=== PATIENT | female | born 1985 | race Caucasian/White ===

== ENCOUNTER 2016-10-02 22:21 | Emergency (ER) | payer MEDICAID ==
[2016-10-02 22:41] VITALS: BP 131/87
--- NOTE | 2016-10-03 00:25 | ER Document Report ---
ED ENT - General Chief Complaint: Sore Throat Stated Complaint: SORE THROAT Time Seen by Provider: 10/03/16 00:18 Notes: Patient is a 31-year-old female presents with 2 days of worsening sore throat and swollen lymph nodes on the left side of her neck. She is able to swallow food and liquids, but it is painful. Denies trismus, fevers, neck stiffness, cough or tongue elevation TRAVEL OUTSIDE OF THE [place] IN LAST 30 DAYS: No - Related Data Allergies/Adverse Reactions: No Known Allergies Allergy (Unverified 11/11/15 19:28) Past Medical History - General Information source: Patient - Social History Smoking Status: Current Every Day Smoker Family History: Reviewed & Not Pertinent Patient has suicidal ideation: No Patient has homicidal ideation: No Renal/ Medical History: Denies: Hx Peritoneal Dialysis Past Surgical History: Reports: Hx Gynecologic Surgery, Hx Tubal Ligation Review of Systems - Review of Systems Notes: REVIEW OF SYSTEMS: CONSTITUTIONAL: -fevers, -chills EENT: -eye pain, -difficulty swallowing, -nasal congestion, +sore throat CARDIOVASCULAR:-chest pain, -syncope. RESPIRATORY: -cough, -SOB GASTROINTESTINAL: -abdominal pain, - nausea, -vomiting, -diarrhea GENITOURINARY: -dysuria, -hematuria MUSCULOSKELETAL: -back pain, -neck pain SKIN: -rash or skin lesions. HEMATOLOGIC: -easy bruising or bleeding. LYMPHATIC: -swollen, enlarged glands. NEUROLOGICAL: -altered mental status or loss of consciousness, -headache, - neurologic symptoms PSYCHIATRIC: -anxiety, -depression. ALL OTHER SYSTEMS REVIEWED AND NEGATIVE. Physical Exam - Vital signs Vitals: Temp Pulse Resp BP Pulse Ox 99.1 F 102 H 16 131/87 H 99 10/02/16 22:39 10/02/16 22:39 10/02/16 22:39 10/02/16 22:39 10/02/16 22:39 - Notes Notes: PHYSICAL EXAMINATION: GENERAL: Well-appearing, well-nourished and in no acute distress. HEAD: Atraumatic, normocephalic. EYES: Pupils equal round and reactive to light, extraocular movements intact, sclera anicteric, conjunctiva are normal. ENT: nares patent, left METAL WEIGHER with exudates, oropharynx patent, no trismus. Moist mucous membranes. NECK: Normal range of motion, supple with left anterior lymphadenopathy LUNGS: Breath sounds clear to auscultation bilaterally and equal. No wheezes rales or rhonchi. HEART: Regular rate and rhythm without murmurs ABDOMEN: Soft, nontender, normoactive bowel sounds. No guarding, no rebound. No masses appreciated. EXTREMITIES: Normal range of motion, no pitting or edema. No cyanosis. NEUROLOGICAL: Cranial nerves grossly intact. Normal speech, normal gait. Normal sensory and motor exams. PSYCH: Normal mood, normal affect. SKIN: Warm, Dry, normal turgor, no rashes or lesions noted. Course - Re-evaluation Re-evalutation: Patient with small left-sided METAL WEIGHER. Airway is open and patent. Attempted to drain METAL WEIGHER, but unsuccessful at this time. Steroids, clindamycin and anti- inflammatories started with follow-up at ENT. Patient given strict return precautions and she understands. - Vital Signs Vital signs: Temp Pulse Resp BP Pulse Ox 99.1 F 102 H 16 131/87 H 99 10/02/16 22:39 10/02/16 22:39 10/02/16 22:39 10/02/16 22:39 10/02/16 22:39 Procedures - Incision and Drainage Left Face Type: Simple - Left METAL WEIGHER Anesthetic type: 1% Lidocaine mL's of anesthetic: 2 Blade size: Other - 18 guage needle Incision Method: Incision made with needle Amount/type of drainage: None Discharge - Discharge Clinical Impression: Peritonsillar abscess Condition: Stable Disposition: HOME, SELF-CARE Additional Instructions: Lyle-Tonsillar Abscess You have a lyle-tonsillar abscess, a pus-filled swelling adjacent to the tonsil. Some abscesses may be left to drain on their own, but most require opening or lancing. It may be a couple of days before the abscess is ready to harshal or to differentiate an abscess from just local tissue infection called cellulitis. An antibiotic may prevent spread of the infection and a steroid medication may reduce the swelling. Once the abscess is opened, either on its own or by lancing it, the wound will heal with surprisingly little scar. Depending on the size of an abscess, healing can take one to four weeks. If you develop fever, chills, worsening pain, or increasing swelling in the area, call the doctor or return immediately. The major risk of a lyle- tonsillar abscess is that it may swell so much that it impinges on your airway and can lead to dangerous obstruction of your breathing. If that seems to be developing, you should seek immediate emergency re-evaluation and care. Prescriptions: Acetaminophen with Codeine [Tylenol #3 Tablet] 1 each PO Q4HP PRN #10 tablet PRN Reason: Clindamycin HCl 300 mg PO Q8H #21 capsule Naproxen [Naprosyn 250 mg Tablet] 500 mg PO Q12H #20 tablet Prednisone [Deltasone 20 mg Tablet] 3 tab PO DAILY 5 Days Referrals: ROSENDO STACY MD [ACTIVE STAFF] - Follow up as needed
[2016-10-03] MEDS ORDERED: NAPROXEN 250 MG TABLET PO ONE (00:46)
[2016-10-03] MEDS ORDERED: LIDOCAINE 2% INJ-PF (20 MG/ML) 10 ML AMPUL NEB ONE (00:46)
[2016-10-03] MEDS ORDERED: DEXAMETHASONE 4 MG TABLET PO ONE (00:46)
[2016-10-03] MEDS ORDERED: CLINDAMYCIN HCL 150 MG CAPSULE PO ONE (00:47)
[2016-10-03] MEDS ORDERED: LIDOCAINE 2% INJ (20 MG/ML) 20 ML MDV INJ ONE (00:47)
== END 2016-10-03 01:50 | disposition home or self-care (01) ==
LOC: ER 22:21
PROC: 0C9PXZZ Drainage of Tonsils, External Approach (ICD-10-PCS; principal; 2016-10-02)
DX: J36 Peritonsillar abscess (principal); F17.200 Nicotine dependence, unspecified, uncomplicated
CPT/HCPCS: 42700; 99283; 87070; 87880; 87077; J3490 ×5

== ENCOUNTER 2016-11-06 18:30 | Emergency (ER) | payer MEDICAID ==
[2016-11-06] MEDS ORDERED: CLINDAMYCIN HCL 150 MG CAPSULE PO ONE (19:05)
[2016-11-06] MEDS ORDERED: LIDOCAINE 2% VISCOUS SOLN 20 ML UDCUP PO ONE (19:05)
[2016-11-06] MEDS ORDERED: DEXAMETHASONE SOD PHOS INJ 10 MG/1 ML VIAL IM ONE (19:06)
[2016-11-06] MEDS ORDERED: IBUPROFEN 800 MG TABLET PO ONE (19:11)
[2016-11-06] MEDS ORDERED: PREDNISONE 20 MG TABLET PO ONE (19:11)
[2016-11-06] MEDS ORDERED: ONDANSETRON HCL 8 MG TABLET PO ONE (19:12)
--- NOTE | 2016-11-06 19:13 | ER Document Report ---
ED Oral Problem - General Mode of Arrival: Ambulatory Information source: Patient TRAVEL OUTSIDE OF THE [place] IN LAST 30 DAYS: No - HPI Patient complains to provider of: Swelling of jaw, Toothache Onset: Yesterday Onset: Gradual Quality of pain: Sharp, Throbbing Severity: Severe Pain Level: 5 Swollen jaw/face: Mild Associated symptoms: Jaw pain, Toothache Worsened by: Cold Relieved by: Nothing Similar symptoms previously: Yes Recently seen / treated by doctor/dentist: No - General Chief Complaint: Toothache Stated Complaint: FACIAL SWELLING,TOOTH PAIN Time Seen by Provider: 11/06/16 18:49 Notes: 31-year-old female presents to ED for pain and swelling to the right lower jaw which she thinks might be her 1 of her infected teeth. She also has a headache and pain with eating or drinking. She has a mouthful of decayed teeth. She has some on the upper left side that have been removed and a partial placed the rest of her teeth most of them are decayed. 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 Lives with: Alone - with children Family History: DM, Hypertension, Malignancy Patient has suicidal ideation: No Patient has homicidal ideation: No - Past Medical History Cardiac Medical History: Reports: None Pulmonary Medical History: Reports: None EENT Medical History: Reports: None Neurological Medical History: Reports: None Endocrine Medical History: Reports: None Renal/ Medical History: Reports: None Malignancy Medical History: Reports: None GI Medical History: Reports: None Musculoskeltal Medical History: Reports None Skin Medical History: Reports Hx Cellulitis Psychiatric Medical History: Reports: None Traumatic Medical History: Reports: None Infectious Medical History: Reports: None Past Surgical History: Reports: Hx Gynecologic Surgery, Hx Oral Surgery, Hx Tubal Ligation Review of Systems - Review of Systems Constitutional: No symptoms reported EENT: Mouth pain, Mouth swelling, Dental problem Cardiovascular: No symptoms reported Respiratory: No symptoms reported Gastrointestinal: No symptoms reported Genitourinary: No symptoms reported Female Genitourinary: No symptoms reported Musculoskeletal: No symptoms reported Skin: No symptoms reported Hematologic/Lymphatic: No symptoms reported Neurological/Psychological: Headaches -: Yes All other systems reviewed and negative Physical Exam - Vital signs Interpretation: Normal - General General appearance: Appears well, Alert - HEENT Head: Normocephalic, Atraumatic Eyes: Normal Pupils: PERRL Mouth/Lips: Caries Mucous membranes: Normal Teeth diagram: 1 - Large portion of tooth is missing with a large decayed area. 2 - Swelling to the left lower jaw does not go into the soft tissue neck Pharynx: Other - Swelling to the lower left jaw no swelling into the neck Neck: Anterior cervical chain - Respiratory Respiratory status: No respiratory distress Chest status: Nontender Breath sounds: Normal Chest palpation: Normal - Cardiovascular Rhythm: Regular Heart sounds: Normal auscultation Murmur: No - Abdominal Inspection: Normal Distension: No distension Bowel sounds: Normal Tenderness: Nontender Organomegaly: No organomegaly - Back Back: Normal, Nontender - Extremities General upper extremity: Normal inspection, Nontender, Normal color, Normal ROM , Normal temperature General lower extremity: Normal inspection, Nontender, Normal color, Normal ROM , Normal temperature, Normal weight bearing. No: Brayden's sign - Neurological Neuro grossly intact: Yes Cognition: Normal Orientation: AAOx4 [place] Coma Scale Eye Opening: Spontaneous [place] Coma Scale Verbal: Oriented [place] Coma Scale Motor: Obeys Commands [place] Coma Scale Total: 15 Speech: Normal Motor strength normal: LUE, RUE, LLE, RLE Sensory: Normal - Psychological Associated symptoms: Normal affect, Normal mood - Skin Skin Temperature: Warm Skin Moisture: Dry Skin Color: Normal - Vital signs Vitals: Temp Pulse Resp BP Pulse Ox 98.3 F 117 H 18 143/88 H 99 11/06/16 18:34 11/06/16 18:34 11/06/16 18:34 11/06/16 18:34 11/06/16 18:34 Course - Diagnostic Test Radiology reviewed: Reports reviewed - Re-evaluation Re-evalutation: 11/06/16 20:[address] Carpenter Patient is a 31 year old female that presents to the emergency department today with complaints of right sided neck pain. Patient states she had dental work on the right side of her mouth 3-4 years ago but she states that "this feels like it is in her neck" versus her mouth. Patient states she has a history of right ear infections as well. Patient states today at 1230 or 1300 she bit into a taco and noticed increasing pain. Patient states she feels hot but has not taken her temperature and has had diarrhea. Patient denies any drainage in her mouth or vomiting. Past medical history as recorded. Review of systems: Constitutional: Feels hot but has not taken temperature. EENT: Right sided neck pain and swelling. Cardiovascular: No symptoms reported Respiratory: No symptoms reported Gastrointestinal: Diarrhea. Denies vomiting. Genitourinary: No symptoms reported Musculoskeletal: No symptoms reported Skin: No symptoms reported Hematologic/Lymphatic: No symptoms reported Neurological/Psychological: No symptoms reported Yes All other systems reviewed and negative PHYSICAL EXAM GENERAL: Alert, interacts well. No acute distress. HEAD: Normocephalic, atraumatic. EYES: Pupils equal, round, and reactive to light. Extraocular movements intact. ENT: Oral mucosa moist, tongue midline. TMs are clear bilaterally. Bilateral turbinate edema, clear rhinorrhea bilaterally right greater than left. No gum erythema. No tenderness with palpation or swelling under tongue. Moderate right -sided facial swelling over the angle of the gonial angle. No mastoid tenderness. Tenderness with palpation over the parotid gland. No fluctuance or erythema. Chronic dental decay, nothing acute. NECK: Full range of motion. Supple. Trachea midline. LUNGS: No respiratory distress. ABDOMEN: Non-distended. EXTREMITIES: Moves all 4 extremities spontaneously. NEUROLOGICAL: Alert and oriented x3. Normal speech. PSYCH: Normal affect, normal mood. SKIN: Warm, dry, normal turgor. No rashes or lesions noted. (JOEL ESPOSITO) 11/06/16 19:23 Patient was treated with clindamycin for her dental infection, ibuprofen and Zofran for her dental pain and headache, prednisone for her mouth and jaw swelling swelling, and lidocaine viscous gel for her dental pain. (KAZ GUTIERREZ) 11/06/16 21:59 I did evaluate and treat this patient, scribe note should read that there is swelling posterior to the angle of the right mandible. No swelling over top the mandible, no evidence of intraoral involvement, no evidence of mastoiditis. Agree with treatment using clindamycin, ibuprofen for her pain and swelling, patient did not mention a headache to me however she spoke with the nurse practitioner about this, patient will be given Zofran for her migraine headache. Prednisone is not given as it could suppress her immune system. Patient declines lidocaine viscous gel. Discharged home. Patient will return should her swelling increased, she developed fevers or any difficulty breathing or swallowing or any new or concerning symptoms. I have edited the nurse practitioner's discharge instructions. Patient will be discharged home. (DORIS CARPENTER) - Vital Signs Vital signs: Temp Pulse Resp BP Pulse Ox 98.5 F 108 H 16 148/96 H 99 11/06/16 19:55 11/06/16 19:55 11/06/16 19:55 11/06/16 19:55 11/06/16 19:55 Discharge - Discharge Clinical Impression: Parotitis, acute Condition: Stable Disposition: HOME, SELF-CARE Instructions: Family Physicians / Practices Additional Instructions: CLINDAMYCIN: You have been given a prescription for the antibiotic clindamycin. It is often prescribed for infections in the mouth, such as dental infections or abscesses, and for skin infections due to MRSA. It's important that you take all the medication, unless instructed otherwise by your physician. Failure to complete the entire course can result in relapse of your condition. Common side effects of antibiotics include nausea, intestinal cramping, or diarrhea. Women may develop vaginal yeast infections, and babies can get yeast (thrush) in the mouth following the use of antibiotics. Contact your physician if you develop significant side effects from this medication. Allergy to this antibiotic can result in hives, wheezing, faintness, or itching. If symptoms of allergy occur, stop the medication and call the doctor. Acute Parotid Gland Swelling The swollen area on your face is an enlarged parotid gland. This gland makes saliva, passing it to the mouth by a duct. Sudden swelling is usually due to blockage of the duct. If infection occurs behind the blocked duct, it can be very serious. The doctor will look for a stone in the duct. The usual treatment is: (1) to promote saliva flow, (2) to prevent or suppress infection in the gland, and (3) to control pain and swelling. Your physician may recommend rinses with dilute lemonade, or using lemon drops, to stimulate saliva. Depending on the circumstances, either warm packs or cold packs may be helpful in reducing pain and swelling (alternate both). Antibiotics are often given. Call the doctor or return for re-examination if you develop high fever, chills, severe headache, or increasing painful swelling of the gland. FOLLOW-UP CARE: If you have been referred to a physician for follow-up care, call the physician s office for an appointment as you were instructed or within the next two days. If you experience worsening or a significant change in your symptoms, notify the physician immediately or return to the Emergency Department at any time for re-evaluation. Prescriptions: Ibuprofen 600 mg PO Q6HP PRN #20 tablet PRN Reason: Clindamycin HCl [Cleocin 300 mg Capsule] 300 mg PO Q6 #28 capsule Ondansetron [Zofran Odt 4 mg Tablet] 1 tab PO Q6H #15 tab.rapdis Forms: Elevated Blood Pressure, Smoking Cessation Education Referrals: CHAPITO TELLEZ MD [ACTIVE STAFF] - Follow up in 3-5 days
[2016-11-06 19:57] VITALS: BP 148/96
== END 2016-11-06 20:01 | disposition home or self-care (01) ==
LOC: ER 18:30
DX: K11.21 Acute sialoadenitis (principal); K04.7 Periapical abscess without sinus
CPT/HCPCS: 99282; J3490

== ENCOUNTER 2017-12-15 12:34 | Emergency (ER) | payer MEDICAID ==
[2017-12-15] MEDS ORDERED: DEXAMETHASONE SOD PHOS INJ 10 MG/1 ML VIAL IV ONE (13:04)
[2017-12-15] MEDS ORDERED: PIPERACILLIN/TAZOBACTAM 4.5 GM VIAL IV ONE (13:05)
[2017-12-15] MEDS ORDERED: KETOROLAC TROMETHAMINE INJ/PF 30 MG/1 ML SDV IV ONE (13:13)
[2017-12-15] MEDS ORDERED: NORMAL SALINE 1000 ML 1,000 ML IV ONE (13:13)
[2017-12-15 13:56] LABS: HEMATOCRIT 42.1 % (36.0-47.0); HEMOGLOBIN 13.9 g/dL (12.0-15.5); MEAN CORPUSCULAR HEMOGLOBIN 23.2 pg (27.0-33.4); MEAN CORPUSCULAR HGB CONC 33.1 g/dL (32.0-36.0); MEAN CORPUSCULAR VOLUME 70 fl (80-97); PLATELET COUNT 153 10^3/uL (150-450); RED BLOOD COUNT 6.01 10^6/uL (3.72-5.28); RED CELL DISTRIBUTION WIDTH 14.7 % (11.5-14.0); WHITE BLOOD COUNT 16.5 10^3/uL (4.0-10.5)
[2017-12-15 13:59] LABS: INTERNATIONAL RATION (INR) 1.03; PARTIAL THROMBOPLASTIN TIME 32.4 SEC (23.5-35.8)
[2017-12-15 14:18] LABS: ANION GAP 13 (5-19); BLOOD UREA NITROGEN 8 mg/dL (7-20); CALCIUM 9.8 mg/dL (8.4-10.2); CARBON DIOXIDE 20 mmol/L (22-30); CHLORIDE 103 mmol/L (98-107); GLUCOSE 91 mg/dL (75-110); POTASSIUM 3.9 mmol/L (3.6-5.0); SODIUM 135.8 mmol/L (137-145)
--- NOTE | 2017-12-15 14:53 | ER Document Report ---
ED ENT - General Chief Complaint: Sore Throat Stated Complaint: SHORTNESS OF BREATH, CHEST PAIN Time Seen by Provider: 12/15/17 12:58 TRAVEL OUTSIDE OF THE [place] IN LAST 30 DAYS: No - HPI Notes: Patient is a 32-year-old female that presents to the emergency department for chief complaint of sore throat and fevers. Patient started having a sore throat yesterday which has progressively gotten worse. She states the left side is worse than the right. Her pain is worse with swallowing. She has not taken any Tylenol or ibuprofen at home for symptomatic treatment. She did try cold compresses with no improvement. She is able to swallow her saliva but states it is painful. She denies any difficulty breathing, cough, nausea, vomiting, diarrhea, numbness, weakness, and headache. Past Medical History: Negative Past Surgical History: Dental extractions, cholecystectomy Social History: Denies drugs alcohol and tobacco use Family History: Reviewed and noncontributory for presenting illness Allergies: Reviewed, see documented allergy list. REVIEW OF SYSTEMS: CONSTITUTIONAL : fever No chills No diaphoresis No recent illness EENT: No vision changes No congestion sore throat CARDIOVASCULAR: No chest pain No palpitations RESPIRATORY: No shortness of breath No cough No difficulty breathing GASTROINTESTINAL: No abdominal pain No nausea No vomiting No diarrhea GENITOURINARY: No dysuria No hematuria No difficulty urinating MUSCULOSKELETAL: No back pain No leg pain No arm pain SKIN: No rashes No lesions LYMPHATIC: No swollen, enlarged glands. NEUROLOGICAL: No lightheadedness No headache No weakness No paresthesias PSYCHIATRIC: No anxiety No depression PHYSICAL EXAMINATION: Vital signs reviewed, nursing noted reviewed. GENERAL: Well-appearing, well-nourished and in no acute distress. HEAD: Atraumatic, normocephalic. EYES: Eyes appear normal, extraocular movements intact, sclera anicteric, conjunctiva are normal. ENT: nares patent. Moist mucous membranes. Bilateral tonsillar edema left greater than right. Left tonsillar exudates. Uvula midline. No sublingual edema. NECK: Normal range of motion. Anterior chain lymphadenopathy, tender left submandibular region LUNGS: Breath sounds clear to auscultation bilaterally and equal. No wheezes rales or rhonchi. HEART: Regular rate and rhythm without murmurs ABDOMEN: Soft, nontender, normoactive bowel sounds. No rebound, guarding, or rigidity. No masses appreciated. EXTREMITIES: Nontender, good range of motion, no pitting or edema. NEUROLOGICAL: No focal neurological deficits. Moves all extremities spontaneously Motor and sensory grossly intact on exam. PSYCH: Normal mood, normal affect. SKIN: Warm, Dry, normal turgor, no rashes or lesions noted on exposed skin - Related Data Allergies/Adverse Reactions: No Known Allergies Allergy (Verified 12/15/17 12:36) Past Medical History - Social History Smoking Status: Current Every Day Smoker Frequency of alcohol use: None Drug Abuse: None Family History: DM, Hypertension, Malignancy Patient has suicidal ideation: No Patient has homicidal ideation: No Renal/ Medical History: Denies: Hx Peritoneal Dialysis Skin Medical History: Reports Hx Cellulitis Past Surgical History: Reports: Hx Gynecologic Surgery, Hx Oral Surgery, Hx Tubal Ligation Review of Systems - Review of Systems Notes: Dictated Physical Exam - Vital signs Vitals: Temp Pulse Resp BP Pulse Ox 100.0 F 142 H 18 151/88 H 98 12/15/17 12:43 12/15/17 12:43 12/15/17 12:43 12/15/17 12:43 12/15/17 12:43 - Notes Notes: Dictated Course - Re-evaluation Re-evalutation: 12/15/17 14:52 Vitals reviewed. Patient tolerating secretions and respirating well on room air. Lab work shows a leukocytosis and she is group B strep positive. Coffey is negative. CT scan obtained to evaluate for peritonsillar or retropharyngeal abscess. Patient was given a dose of Zosyn for possible peritonsillar abscess. She also received Decadron and Toradol for symptomatic treatment. Laboratory 12/15/17 12/15/17 12/15/17 13:28 13:28 13:28 WBC 16.5 H RBC 6.01 H Hgb 13.9 Hct 42.1 MCV 70 L MCH 23.2 L MCHC 33.1 RDW 14.7 H Plt Count 153 PT 14.0 INR 1.03 APTT 32.4 Sodium 135.8 L Potassium 3.9 Chloride 103 Carbon Dioxide 20 L Anion Gap 13 BUN 8 Creatinine 0.40 L Est GFR ( Amer) > 60 Est GFR (Non-Af Amer) > 60 Glucose 91 Calcium 9.8 Serum HCG, Qual Monotest Group A Strep Rapid 12/15/17 12/15/17 12/15/17 13:28 13:28 13:28 WBC RBC Hgb Hct MCV MCH MCHC RDW Plt Count PT INR APTT Sodium Potassium Chloride Carbon Dioxide Anion Gap BUN Creatinine Est GFR ( Amer) Est GFR (Non-Af Amer) Glucose Calcium Serum HCG, Qual NEGATIVE Monotest NEGATIVE Group A Strep Rapid POSITIVE 12/15/17 15:12 Patient is feeling improved. She is able to swallow secretions and is oxygenating well on room air. CT scan showed no peritonsillar or retropharyngeal abscess. Patient strep pharyngitis was treated with Bicillin IM. She was counseled on return precautions. Discharged home in stable condition. - Vital Signs Vital signs: Temp Pulse Resp BP Pulse Ox 100.0 F 142 H 18 151/88 H 98 12/15/17 12:43 12/15/17 12:43 12/15/17 12:43 12/15/17 12:43 12/15/17 12:43 - Laboratory Result Diagrams: 12/15/17 13:28 12/15/17 13:28 Laboratory results interpreted by me: 12/15/17 12/15/17 13:28 13:28 WBC 16.5 H RBC 6.01 H MCV 70 L MCH 23.2 L RDW 14.7 H Sodium 135.8 L Carbon Dioxide 20 L Creatinine 0.40 L Discharge - Discharge Clinical Impression: Strep pharyngitis Condition: Stable Disposition: HOME, SELF-CARE Instructions: St[facility] Throat ([facility]), Family Physicians / Practices Additional Instructions: Please return to the emergency department if you have any worsening, or concern of your symptoms. Please return to the emergency department if you develop chest pain, difficulty breathing, severe abdominal pain, or ongoing vomiting. Please follow-up with your primary care physician in 2-3 days and any other recommended physicians. If prescribed, take all medications as directed. If you have any questions or concerns do not hesitate to return the emergency department for evaluation. []
[2017-12-15] MEDS ORDERED: PENICILLIN G BENZATHINE 1.2 MILLION UNIT/2 ML DISP.SYRIN IM ONE (15:11)
--- NOTE | 2017-12-15 15:14 | RADIOLOGY REPORT (SQ) ---
EXAM DESCRIPTION: CT SOFT TISSUE NECK WITH COMPLETED DATE/TIME: 12/15/2017 2:58 pm REASON FOR STUDY: Neck swelling high potato voice concern for absces COMPARISON: None. TECHNIQUE: Post IV contrasted scanning from skull base through lung apices with review of bone, soft tissue and lung windows. Reconstructed coronal and sagittal MPR images reviewed. All images stored on PACS. All CT scanners at this facility use dose modulation, iterative reconstruction, and/or weight based d osing when appropriate to reduce radiation dose to as low as reasonably achievable (ALARA). [facility]: Dose Right [facility]: CareDose [facility]: Dose Right [facility]: Teradose 4D [facility]: [email or web address] CONTRAST TYPE AND DOSE: contrast/concentration: Isovue 350.00 mg/ml; Total Contrast Delivered: 75.0 ml; Total Saline Delivered: 55.0 ml RENAL FUNCTION: Creatinine 0.4 RADIATION DOSE: CT Rad equipment meets quality standard of care and radiation dose reduction techniq ues were employed. CTDIvol: 9.2 mGy. DLP: 269 mGy-cm. . LIMITATIONS: None. FINDINGS: SKULL BASE: Inferior brain parenchyma unremarkable MAJOR SALIVARY GLANDS: No solid or cystic masses. No inflammatory changes. LYMPHADENOPATHY: There is diffuse cervical adenopathy likely reactive, given acute tonsillitis MUCOSAL MASSES OR ASYMMETRY: Bilateral pharyngeal tonsils are enlarged, without intra tonsillar or pe ritonsillar abscess, right pharyngeal tonsil 3.5 cm craniocaudad by 3 cm AP x 2 cm transverse. Left pharyngeal tonsil 4 cm craniocaudad by 3.2 cm AP x 2.5 cm transverse. . These tonsils meet in the m idline in the oropharynx causing moderate airway narrowing. Findings discussed with in the e mergency room LARYNX/CORDS: No abnormal findings. VASCULAR STRUCTURES: The major vessels are patent. LUNG APICES: Clear. BONES: Intact. THYROID: Diffuse thyromegaly without discrete masses. PARANASAL SINUSES: Clear. OTHER: No other significant finding. IMPRESSION: Massive pharyngeal tonsil enlargement without intra tonsillar or peritonsillar abscess. Reactive cervical adenopathy Diffuse thyromegaly without gross CT evidence of thyroid nodules TECHNICAL DOCUMENTATION: JOB ID: [id number] Quality ID # [id number]: Final reports with documentation of one or more dose reduction techniques (e.g., Au tomated exposure control, adjustment of the mA and/or kV according to patient size, use of iterative reconstruction technique) 2010 [employer]- All Rights Reserved Reading location - IP/workstation name: [email or web address]
[2017-12-15 15:47] VITALS: BP 130/83
== END 2017-12-15 15:48 | disposition home or self-care (01) ==
LOC: ER 12:34
DX: R07.9 Chest pain, unspecified (principal); J02.0 Streptococcal pharyngitis; F17.200 Nicotine dependence, unspecified, uncomplicated; Z98.51 Tubal ligation status
CPT/HCPCS: 99284; 96372; 96361; 96375; 96365; 36415; 87880; 84703; 85027; 85610; 85730; 86308; 80048; 70491; J1885; J0561; J1100; J2543